=== PATIENT | female | born 1950 | race American Indian/Alaskan Native ===

== ENCOUNTER 2021-05-23 11:23 | Day surgery (SDC) | payer MEDICARE ==
[2021-05-22 10:49] LABS: Hematocrit 37.5 % (30.3-42.9); Hemoglobin 12.3 gm/dl (10.1-14.3); Mean Corpuscular HGB Conc 33 % (30-34); Mean Corpuscular Volume 97 fl (79-97); Platelet Count 252 K/mm3 (140-440); Red Blood Count 3.85 M/mm3 (3.65-5.03); Red Cell Distribution Width 12.7 % (13.2-15.2)
[2021-05-22 10:51] LABS: Albumin 3.7 g/dL (3.9-5)
[2021-05-23] MEDS ORDERED: HYDROmorphone 1 MG/1 ML INJ IV PRN ×2 (12:37)
--- NOTE | 2021-05-23 12:38 | Anesthesia Day of Surgery ---
Anesthesia Day of Surgery - Day of Surgery Patient Examined: Yes Patient H&P Reviewed: Yes Patient is NPO: Yes
--- NOTE | 2021-05-23 12:39 | Anesthesia Consultation ---
Anesthesia Consult and Med Hx Date of service: 05/23/21 - Airway Anesthetic Teeth Evaluation: Dentures, Edentulous ROM Head & Neck: Adequate Mental/Hyoid Distance: Adequate Mallampati Class: Class II Intubation Access Assessment: Good - Pre-Operative Health Status ASA Pre-Surgery Classification: ASA3 Proposed Anesthetic Plan: General - Pulmonary Hx Smoking: No Hx Sleep Apnea: No (GHULAM PRE SCREEN LOW RISK) - Cardiovascular System Hx Hypertension: Yes (Pt reports negative stress test approx two years ago) Hx Peripheral Vascular Disease: Yes (NGUYỄN LEGS WITH STENTS) - Central Nervous System Hx Psychiatric Problems: No - Gastrointestinal Hx Gastroesophageal Reflux Disease: Yes (Occasional) - Endocrine Hx Renal Disease: Yes (Stones and CRI) Hx End Stage Renal Disease: No Hx Non-Insulin Dependent Diabetes: Yes - Hematic Hx Anemia: No Hx Sickle Cell Disease: No - Other Systems Hx Cancer: No
[2021-05-23] MEDS ORDERED: LACTATED RINGERS 1,000 ML IV SCH (13:00)
[2021-05-23] MEDS ORDERED: ONDANSETRON 4 MG/2 ML INJ IV PRN (13:00)
[2021-05-23] MEDS ORDERED: LIDOCAINE MPF (2%) 20 MG/1 ML VIAL 5 ML ONE (14:21)
[2021-05-23] MEDS ORDERED: fentaNYL 100 MCG/2 ML INJ ONE (14:21)
[2021-05-23] MEDS ORDERED: propofoL 200 MG/20 ML VIAL IV ONE (14:21)
[2021-05-23] MEDS ORDERED: ceFAZolin/STERILE WATER 2 GM/20 ML SYRINGE IV NR (14:25)
[2021-05-23] MEDS ORDERED: ceFAZolin/Water 2 GM/20 ML 2 GM/20 ML SYRINGE IV ONE (14:28)
--- NOTE | 2021-05-23 14:44 | Post Operative Note ---
Date of procedure: 05/23/21 Pre-op diagnosis: bladder lesion Post-op diagnosis: same Findings: as above Procedure: cystio exciosn Anesthesia: GETA Surgeon: KATERIN CORNELIUS Pathology: list (bladder) Specimen disposition: to lab Condition: stable Disposition: PACU
--- NOTE | 2021-05-23 14:45 | Discharge Summary ---
Short Stay Discharge Plan Activity: other (no straining ) Weight Bearing Status: Full Weight Bearing Diet: low fat, low cholesterol, low salt Special Instructions: other (inc fluids ) Follow up with: BENJAMIN PERAZA DO [Primary Care Provider] - 7 Days KATERIN CORNELIUS MD [Staff Physician] - 7 Days
[2021-05-23] MEDS ORDERED: WATER FOR IRRIG STERILE 2000 ML IR ONE (14:50)
[2021-05-23] MEDS ORDERED: IOHEXOL 300 MG/ML 50ML IV ONE (14:53)
[2021-05-23] MEDS ORDERED: METHYLENE BLUE 50 MG/10 ML AMP ONE (14:58)
[2021-05-23] MEDS ORDERED: FUROSEMIDE 40 MG/4 ML INJ ONE (15:07)
[2021-05-23] MEDS ORDERED: ONDANSETRON 4 MG/2 ML INJ ONE (15:17)
--- NOTE | 2021-05-23 15:32 | Operative Report ---
DATE OF SURGERY: 05/23/2021 PREOPERATIVE DIAGNOSES: Bladder lesions, hematuria. POSTOPERATIVE DIAGNOSES: Bladder lesions, hematuria. PROCEDURES: Cystoscopy, right retrograde very pinpoint orifices, excision of a 7 mm lesion towards the dome with fulguration. SURGEON: Dr. Lynne. ANESTHESIA: General. FINDINGS: This is a woman who has a papillary erythematous lesion at the dome of the bladder. The rest of the bladder was unremarkable. She now presents for excision and fulguration. DESCRIPTION OF PROCEDURE: The patient was brought to the operating table. Following induction of anesthesia, placed in lithotomy position, prepped and draped in usual sterile fashion. Cystourethroscopy showed slightly cloudy urine, which was drained and we saw a solitary lesion just to the left of the midline at the dome. Using manual pressure, this was excised in total and cauterized. The orifices were difficult to see. They were pinpoint. We were able to do a retrograde on the right, but we did not want to damage the orifices. We did not think it was necessary to place a wire because the new cone tips because of back order were very sharp and more patulous. We decided not to do the left. The patient tolerated the procedure well. Urine was clear. A catheter was left. She was brought to recovery in stable condition. TID: [id number] RECEIPT: [id number] STEFANI/BOONE
[2021-05-23] MEDS ORDERED: diphenhydrAMINE 50 MG/ML VIAL ONE (15:42)
[2021-05-23] MEDS ORDERED: diphenhydrAMINE 50 MG/ML VIAL IV PRN (15:45)
--- NOTE | 2021-05-23 15:52 | Post Anesthesia Evaluation ---
- Post Anesthesia Evaluation Patient Participated: Yes Airway Patent: Yes Stable Respiratory Function: Yes Nausea/Vomiting: No Temp > 96.8F: Yes Pain Manageable: Yes Adequeate Hydration: Yes Anesthesia Complications: No Block Receding Appropriately: Not Applicable Patient on Ventilator: No
--- NOTE | 2021-05-23 16:09 | Fluoroscopy Report ---
INTRAOPERATIVE FLUOROSCOPY: RETROGRADE UROGRAPHY INDICATION / CLINICAL INFORMATION: BLADDER LESION. TECHNIQUE: Intraoperative spot images were obtained during the procedure. FINDINGS: Retrograde injection of the right ureter shows no definite abnormality. Please see procedure note for further details. Fluoroscopy Time: 0.2 minutes. Fluoroscopy Images: 4. Signer Name: Felicitas Alfaro MD Signed: 05/23/2021 4:05 PM Workstation Name: [id number]
[2021-05-23 17:33] VITALS: BP 167/84
== END 2021-05-23 19:45 | disposition home or self-care (01) ==
LOC: OR 11:23
PROVIDERS: ATTEND Urology
DX: N32.9 Bladder disorder, unspecified (principal); N30.21 Other chronic cystitis with hematuria; N20.0 Calculus of kidney; I10 Essential (primary) hypertension; K21.9 Gastro-esophageal reflux disease without esophagitis; E11.9 Type 2 diabetes mellitus without complications; E78.00 Pure hypercholesterolemia, unspecified; M19.90 Unspecified osteoarthritis, unspecified site; Z79.4 Long term (current) use of insulin; Z79.899 Other long term (current) drug therapy; Z88.1 Allergy status to other antibiotic agents; Z91.040 Latex allergy status; Z88.8 Allergy status to other drugs, medicaments and biological substances; Z20.822 Contact with and (suspected) exposure to COVID-19
CPT/HCPCS: 36415; 52204; 74420; 80053; 82962; 85027; 88112; 88305; A4217; C1758; J0690; J1200; J1940; J2405; J2704; J3010; J7120; Q9967; Q9968; U0003